=== PATIENT | male | born 1965 | race Caucasian/White ===

== ENCOUNTER 2024-04-30 17:49 | Emergency (ER) | payer SELFPAY ==
[2024-04-30 17:53] VITALS: BP 116/84; PULSE 77; RESP 18; TEMP 36.5; O2SAT 96; BMI 33.0
[2024-04-30 18:05] VITALS: BP 109/69; PULSE 64; O2SAT 100
--- NOTE | 2024-04-30 18:22 | CT_ITS ---
PROCEDURE INFORMATION: Exam: CT Lumbar Spine Without Contrast Exam date and time: 04/30/2024 6:33 PM Age: 58 years old Clinical indication: Low back pain; Additional info: Midline pain, bilateral thigh pain. Neuro intact TECHNIQUE: Imaging protocol: Computed tomography of the lumbar spine without contrast. Radiation optimization: All CT scans at this facility use at least one of these dose optimization techniques: automated exposure control; mA and/or kV adjustment per patient size (includes targeted exams where dose is matched to clinical indication); or iterative reconstruction. COMPARISON: No relevant prior studies available. FINDINGS: Bones/joints: No acute fracture identified. Moderate degenerative disc disease at L3-L4 with disc narrowing and spurring. Associated bulging disc spur complex and facet arthritic changes resulting in [id number] central canal and bilateral foramina narrowing. Uqbq-mr-[id number] degenerative disc disease at L5-S1 with bulging disc spur complex and associated qqva-jf-ckrqcpgi foramina narrowing. Mild degenerative spurring at the remaining lumbar levels with mildly bulging disc but without significant central canal or foramina narrowing. Soft tissues: Unremarkable. IMPRESSION: Degenerative changes most pronounced at L3-L4 and L5-S1.
--- NOTE | 2024-04-30 18:31 | [facility].EDGENADL ---
Discharge Plan Disposition Patient Disposition: Home, Self-Care Prescriptions Prescriptions: New prednisone 20 mg tablet 40 mg PO DAILY 5 Days Qty: 10 0RF methocarbamol 750 mg tablet 1,500 mg PO TID 5 Days Qty: 30 0RF Referrals Follow up/Referrals: John Espinoza MD [Staff Physician] - See instructions Kaleb Ray APRN [Primary Care Provider] - See instructions Activity Restrictions/Add. Instructions Additional Instructions/Restrictions: Call your family doctor to establish care for this visit to the emergency department and schedule follow-up within 48 hours to ensure improvement. If you have any worsening of your condition or any other concerning signs or symptoms, return to the emergency department or your primary care doctor for further evaluation. Contact Dr. Espinoza as well as your primary care provider. Talk to your primary care provider about getting an MRI of your spine to further delineate degenerative changes and discuss potential need for surgery of your lower back. Clinical Impressions Clinical Impression: Lumbago, Degenerative disc disease, lumbar Instructions Patient Instructions: DI for Low Back Pain Print Language Print Language: Turkish Discharge ED Provider: Lyndon Man General Adult HPI General Chief complaint: Back Pain/Injury Stated complaint: back pain, bilateral leg pain Time Seen by Provider: 04/30/24 17:59 Mode of Arrival: Ambulatory Source of Information: Patient Limitations: No Limitations Description of Symptoms (Recalled from ER Triage Doc. by RN): Pt presents with c/o back pain. Pt states the pain started yesterday after he got of his truck and was walking. Pt states it is his whole lower side and radiates to his left leg. rates pain 9/10. pt went to work today and had to leave due to pain being unbearable. pt took 1 tablet of lortab History of Present Illness HPI narrative: Please note that above description of symptoms, in this electronic medical record under categorization of recalled from ER triage doctor by RN are reflective of an initial nursing assessment, however, is not reflective of my full history and physical exam that was personally taken and clarified. Consequentially, this preceding description of symptoms, which may include the patient's categorized chief complaint in the EMR, do not reflect my personal clinical impression, and the ultimate description of history of present illness and patient stated complaints should be deferred to this section of the note. Unless stated otherwise or congruent with this section of the note, additional signs, symptoms, or incongruence should be interpreted as inaccurate with my clinical impression. Related Data Previous Rx's ?Medication ?Instructions ?Recorded methocarbamol 750 mg tablet 1,500 mg (2 x 750 mg) PO TID 5 04/30/24 days #30 tabs prednisone 20 mg tablet 40 mg (2 x 20 mg) PO DAILY 5 days 04/30/24 #10 tabs Allergies Allergy/AdvReac Type Severity Reaction Status Date / Time Penicillins Allergy Unknown Verified 04/30/24 18:01 allergy reaction [facility] Disclaimer: The information contained in this section may have been updated after the patient was seen, as this information can be updated by other users. Social History Smoking Status: Never smoker alcohol intake: never current occupational status: employed Travel in the last 8 weeks: None ROS Obtained: Yes All systems reviewed & no additional complaints except as documented Physical Exam General General appearance: alert Head Head exam: atraumatic and normocephalic Eye Eye exam: Present normal appearance, PERRL and EOMI Neck Neck exam: Present normal inspection, full ROM and trachea midline Respiratory Respiratory exam: Absent respiratory distress, wheezes, stridor, accessory muscle use or prolonged expiratory phase Cardiovascular Cardiovascular exam: Present other (Pulses equal symmetric in upper and lower extremities) Abdominal Exam Abdominal exam: Present soft; Absent distention, tenderness or pulsatile mass Extremities Exam Extremities exam: Absent edema Back Exam Back exam: Present vertebral tenderness (Midline lumbosacral. Splinting in bed) Neurological Exam Neurological exam: Present alert, oriented X3 and CN II-XII intact; Absent motor sensory deficit Skin Skin exam: Present warm and dry; Absent diaphoresis or erythema Medical Decision Making Medical Records Medical records reviewed: Yes I reviewed the patient's medical records. Screening: Per USPSTF and CDC recommendations, given the prevalence of disease in our region, it is our hospital?s policy to screen for HIV and viral Hepatitis for all patients aged 18 and over and those with ongoing risk factors. Kristopher Inquiry Pt receiving controlled substance: No Kristopher was queried for this patient: No Vital Signs: 04/30/24 17:53 04/30/24 18:05 04/30/24 18:45 Temperature 97.7 F Temperature Source Oral Pulse Rate 64 64 Pulse Rate [Right] 77 Respiratory Rate 18 Blood Pressure 109/69 L 109/69 L Blood Pressure [Right Arm] 116/84 Blood Pressure Mean [Right Arm] 94 Blood Pressure Source [Right Arm] Automatic Cuff Blood Pressure Position [Right Arm] Standing 02 Sat by Pulse Oximetry 96 100 100 Oxygen Delivery Method Room Air Room Air Orders (Tests/Meds): ED MEDICATIONS Discontinued Medications Generic Name Dose Route Start Last Admin Trade Name Donn PRN Reason Stop Dose Admin Lidocaine 1 each 04/30/24 18:22 04/30/24 18:39 Lidocaine 5% Transdermal Patch TP 04/30/24 18:23 1 each ONCE ONE Administration Methocarbamol 1,500 mg 04/30/24 18:22 04/30/24 18:39 Methocarbamol 500mg Tablet PO 04/30/24 18:23 1,500 mg ONCE ONE Administration Prednisone 40 mg 04/30/24 18:22 04/30/24 18:39 Prednisone 20mg Tab PO 04/30/24 18:23 40 mg ONCE ONE Administration ORDERS Category Date Time Status CT lumbar spine wo con Stat Cat Scan 04/30/24 18:22 Completed Medical Decision Narrative: 58-year-old male no relevant medical history presenting with midline back pain. Patient states that just before arrival couple hours, he got out of his truck, was walking around, then all of a sudden he had a severe pain in the middle of his back that radiates down both legs. No weakness, numbness, tingling. No bowel or bladder dysfunction, no saddle anesthesia. States that he took a hydrocodone from a previous surgery it did not seem to help at all. Patient also denying abdominal pain, hematuria, or any other associated symptoms. Moderate in intensity, associated with a feeling of his back locking up. . History was obtained via conversation with patient. On arrival, patient hemodynamically stable, alert, oriented x4, appropriate, GCS 15, moving all extremities spontaneously, pupils equal and reactive to light. Full physical exam performed and significant for well-appearing 58-year-old male. He is splinting in bed. Midline lumbosacral spinal tenderness. No outward signs of abnormality. Motor, sensory intact lower extremities. No saddle anesthesia. No pulsatile abdominal mass. No abdominal tenderness at all.. Differential includes lumbosacral osteoarthritis, disc herniation, fracture, spinal stenosis, less likely to be cauda equina, conus medullaris, AAA, among others. Patient placed on continuous cardiac monitoring and continuous pulse ox with initial blood pressure 116/84, heart rate 77, saturation 96% on room air. Patient was given Robaxin, prednisone, lidocaine patch for symptomatic management and correction of underlying abnormalities. CT was ordered out of abundance of caution. I feel low likelihood to have any underlying pathology, however patient is having midline back pain with bilateral symptoms and I would like to assess. Workup independently interpreted and significant for degenerative disc disease with narrowing of spaces as well as moderate facet arthropathy and arthritis. On reevaluation, patient resting about as he was at baseline, a little improved. Given patient presentation, workup, history, this most likely represents lumbar spine pain secondary to degenerative changes. Because patient at baseline without signs or symptoms of clinical decompensation, deemed appropriate for discharge. Results were relayed to patient who voiced understanding and were agreeable to outpatient management and follow up. I discussed my clinical impression with patient and answered all questions. At this time, the evidence for any other entities in the differential is insufficient to warrant any further testing or ED observation. This was explained as well. Advisory was given that persistent or worsening symptoms require further evaluation. I confirmed the understanding of this discussion. Ge[employer] Teacher disclaimer Much of this encounter note is an electronic tariff compiling clerk spoken language to printed text. Electronic tariff compiling clerk of the spoken language may permit errors. Although I have reviewed the note, some errors may still exist. Critical Care Critical Care Time Critical Care Time: No
[2024-04-30] MEDS: LIDOCAINE 5% TRANSDERMAL PATCH 1 EACH TP (18:39)
[2024-04-30] MEDS: predniSONE 20MG TAB 40 MG PO (18:39)
[2024-04-30] MEDS: METHOCARBAMOL 500MG TABLET 1500 MG PO (18:39)
[2024-04-30 18:45] VITALS: BP 109/69; PULSE 64; O2SAT 100
--- NOTE | 2024-04-30 18:55 | PC.NURSE ---
ROUNDED ON THE PT. THE PT VOICES THAT HE DOES NOT NEED ANYTHING AT THIS TIME. CALL LIGHT IS WITHIN REACH OF THE PT. FAMILY MEMBER IS PRESENT AT THE BEDSIDE.
[2024-04-30 19:01] VITALS: BP 122/83; PULSE 61; RESP 18; TEMP 36.8; O2SAT 100
== END 2024-04-30 19:15 | disposition home or self-care (01) ==
PROVIDERS: Emergency Provider Emergency Medicine; PCP Nurse Practitioner Family
DX: M51.369 Other intervertebral disc degeneration, lumbar region without mention of lumbar back pain or lower extremity pain (principal); M54.50 Low back pain, unspecified; M79.605 Pain in left leg
CPT/HCPCS: 72131; 99284